=== PATIENT | female | born 1965 | race Caucasian/White ===

== ENCOUNTER → 2017-08-06 | Outpatient (CLI) | payer BC ==
[~2017-08-06] MED LIST: BCP
[2017-08-06 13:53] LABS: ALT/SGPT 22 U/L (12-78); BLOOD UREA NITROGEN 15 mg/dl (7-18); BUN/CREATININE RATIO 20.3 (10-20); CALCIUM 8.7 mg/dl (8.5-10.1); CARBON DIOXIDE 29 mmol/L (21-32); CHLORIDE 106 mmol/L (98-107); CHOLESTEROL 242 mg/dl (0-200); CREATININE 0.72 mg/dl (0.60-1.20); GLUCOSE 93 mg/dl (70-99); POTASSIUM 3.6 mmol/L (3.5-5.1); SODIUM 140 mmol/L (136-145)
[2017-08-06 13:56] LABS: CHOLESTEROL/HDL RATIO 3.4; HDL CHOLESTEROL 72 mg/dl; TRIGLYCERIDES 83 mg/dl (0-150); VERY LOW DENSITY LIPOPROT CALC 17 mg/dl
== END | disposition home or self-care (01) ==
LOC: C.LABMFLN 08:01
PROVIDERS: ATTEND Family Medicine
DX: Z13.220 Encounter for screening for lipoid disorders (principal)

== ENCOUNTER 2020-07-25 11:13 | Inpatient (IN) ==
[2020-07-25] MEDS ORDERED: MAGNESIUM HYDROXIDE SUSP 30 ML UDC PO PRN (11:52)
[2020-07-25] MEDS ORDERED: ONDANSETRON INJ 2 MG/ML 2 ML VIAL IV PRN (11:52)
[2020-07-25] MEDS ORDERED: METOCLOPRAMIDE HCL INJ 5 MG/ML 2 ML VIAL IV PRN (11:52)
[2020-07-25] MEDS ORDERED: CEFAZOLIN 2000MG 2,000 MG/15 ML SYR IV SCH (12:30)
--- OUTSIDE RECORDS SUMMARY | 2020-07-25 12:30 | External Medical Summary | Continuity of Care Document ---
:1965 Author Name Russ Dumont Address Unavailable Unavailable , Care Team Providers Name Role Phone Unavailable Unavailable Unavailable Anand AHUJA M.D. Unavailable Unavailable Unavailable Unavailable Unavailable Problems Breast pain (611.71) (N64.4) Counseling for initiation of control method (V25.02) ( Z30.09) Mass of pelvis (789.30) (R19.00) Encounter for routine gynecological examination (V72.31) (Z0 1.419) Viral labyrinthitis (386.35) (H83.09) Encounter for screening for lipoid disorders (V77.91) (Z13.2 20) Allergies and Adverse Reactions No Known Drug Allergies (Allergy) Medications Medications not documented Procedures History of Dilation And Curettage Status : Completed History of Abdominoplasty Status: Comple dirk Counseling for initiation of control method History of BCP ( control pills) initiation Status: Completed Immunizations Tubersol 5 UNIT/0.1ML Intradermal Solution On: 06-Aug-2017 8: 40 Lot #: [id number], [employer] Family History Mother Family history of Non-Hodgkin's Lymphoma Status: Active Family history of Breast Cancer (V16.3) Status: Active Family history of Malignant Neoplasm Of The Anus Status: Act yo natural son Family history of Non-Hodgkin's Lymphoma Status: Active Grandmother Family history of Ovarian Cancer (V16.41) Status: Active aunt Family history of Ovarian Cancer (V16.41) Status: Active Father Family history of Diabetes Mellitus (V18.0) Status: Active Family history of Hypertension (V17.49) Status: Active Family history of Pure Hypercholesterolemia Status: Active Social History - Smoking Status Tobacco smoking consumption unknown Never smoked tobacco Plan of Treatment Planned Observations Planned Goals not documented Results No Known Results Results not documented
--- NOTE | 2020-07-25 12:51 | Hospitalist Consultation ---
Date of Consultation July 25, 2020 Assessment & Plan (1) Closed right hip fracture: - Ortho on board- Dr. Ibarra - plan for surgical fixation tomorrow for subcapital R hip fracture fixation - NPO after midnight - EKG and CXR clear - CBC and BMP WNL - Pain control with tylenol 100 mg PO Q8H prn, oxycodone IR 5-10 mg Q6H prn - Bowel regimen ordered - Protonix 40 mg QAM - PT/OT consults after surgery - Preop abx with ancef - Melatonin provided for sleep tonight (2) Hypokalemia: - K 3.3 on admission, will replace with PO 30 meq (3) DVT prophylaxis: - teds, scds CODE: FULL code Dispo: From home, likely to remain in the hospital x 2 days, plan for surgery tomorrow Supervising Physician Co-Signing Physician Notes Patient was seen and examined independently I discussed the case with Gloria Pierre PAC I reviewed pertinent past medical social family history and also the plan of care and agree with the plan of care. Patient is in very good health prescribe no issues hopefully upcoming surgery Vitals are reviewed Heart exam is regular lungs are clear she has good neurovascular objective evaluation of her distal right leg Any exceptions will be noted below History of Present Illness Reason for Consultation: Pre-op, medical management Requesting Physician: Dr. Ibarra Attending Physician: Cecilio Ibarra, DO History of Present Illness This is a 54 yo F with PMHx of gestational DM as a mother of five children (ages ranging from 15-25 with a set of twins), hx hernia repair and tummy tuck in 2004 and C3 spinal leak in 2011 resolved after undergoing blood patch by [facility] neurology, who presents for hip surgery scheduled for tomorrow with Dr. Ibarra after a fall she sustained on Saturday. Pt was with her , ready to go for a bike ride on rails to trails while holding onto her dog with a leash in the R hand, the dog lunged forward and pulled her over and fell onto the R hip. She didn't go on the bike ride, instead read a book while the rest of them rode bikes. She was unable to bear weight on it and had to crawl into her house after the trip. She spent most of the day laying in bed yesterday, using naproxen routinely q12hr.. She was using crutches to help get around the house. She had an appointment with [facility] to have hip evaluated; once there it was determined that she would need surgical fixation and was sent to the hospital as a direct admission under ortho service. She feels well currently, and pain is minimal in the R hip but feels swollen in her R lower back. Mobility of the R hip has improved where she can perform hip flexion slightly and more easily than she has been able to in last 2 days. Pt denies numbness, tingling, diminished sensation in the RLE. She denies bowel or bladder incontinence. Pt has been eating and drinking without difficulty. Pt is very active person, walking 45 min twice daily, going on hikes, bike riding, etc, and wants to be able to maintain this lifestyle after surgery. She is nervous about this surgery, specifically about sedation and pain management afterwards. Encouragement was provided at bedside for discussing this openly with the team, and for taking medications like tylenol around the clock after surgery which she was receptive to. Allergies Allergy/AdvReac Type Severity Reaction Status Date / Time No Known Allergies Allergy Unknown Verified 05/23/04 14:49 Home Medications Home Medications Medication Instructions Recorded Confirmed Type BCP #0 08/22/06 History Review of Systems Review of Systems: Constitutional: No fever, sweats or chills Eyes: No diplopia, no worsening or blurred vision ENT: normal hearing, no trouble swallowing Respiratory: No cough, sputum, dyspnea at rest or on exertion Cardiovascular: No chest pain, tightness or palpitations Abdomen: No pain, nausea, vomiting, diarrhea or constipation Musculoskeletal: + Mild R hip pain and lower R back pain, no knee or ankle pain, no calf pain, no swelling Neurologic: As per HPI, otherwise No weakness, numbness/tingling, or balance problems Psychiatric: No anxiety or depression Skin: No rash or itch Physical Exam Physical Exam: General: awake, alert, no apparent distress Head: Normocephalic, atraumatic ENT: PERRL, EOMI, no pharyngeal exudate, mucous membranes moist Chest: Clear to auscultation, on room air, no adventitious breath sounds Cardiac: Regular rate and rhythm, no murmur, no JVD, normal peripheral pulses, good capillary refill Abdominal: NABS x 4 quadrants, soft, nondistended, nontender to palpation, no rebound, guarding or tenderness Extremities: R hip with small abrasion (2cm long) over the R hip area, no surrounding ecchymosis or edema. Otherwise Normal inspection, no peripheral edema or erythema, calfs nontender to palpation Psych: Normal mood and affect Neuro: AAO x 3, strength intact bilaterally and related 5/5 in upper extremities, can perform ~ 30-40 degrees hip flexion with the R hip, gait not assessed, otherwise no motor deficits, speech is clear, no peripheral sensory deficits Results & Data Results & Data ([facility]) Diagnostic Findings CT SCAN OF THE RIGHT HIP WITHOUT IV CONTRAST CLINICAL HISTORY: Fall. Right hip pain. COMPARISON STUDY: No priors. TECHNIQUE: CT scan of the right hip is performed from the bony pelvis to the femoral shaft. Images are reviewed in the axial, sagittal, and coronal planes. IV contrast was not administered for this examination. 3-D reformats are created and assessed. A dose lowering technique was utilized adhering to the principles of ALARA. Note that interpretation is suboptimal without plain film correlate. CT DOSE: 383.83 mGy.cm FINDINGS: The skeletal structures are osteopenic. There is an impacted subcapital fracture of the right femur with mild surrounding hemorrhage. No additional fracture is seen. The visualized right hemipelvis appears intact. There is mild degenerative joint space narrowing noted in the right hip. No lytic or blastic lesion is identified. There is no evidence of osteonecrosis of the femoral head. The overlying musculature is normal in appearance. There is no right pelvic sidewall or right inguinal adenopathy. The bladder and uterus are normal as imaged. IMPRESSION: There is an impacted subcapital fracture of the right femur as above. XR femur RT 2V routine CLINICAL HISTORY: right hip fracture COMPARISON: None. DISCUSSION: There is an acute subcapital right hip fracture. There is no dislocation. IMPRESSION: Acute subcapital right hip fracture. ECG Additional Comments: 25-JUL-2020 13:45:28 [facility]-2 [place] ROUTINE RETRIEVAL Normal sinus rhythm Possible Left atrial enlargement Nonspecific ST abnormality Abnormal ECG No previous ECGs available 25mm/s 10mm/mV 150Hz 9.0.9 12SL 241 HD DANNI: 14 Referred by: Cecilio Ibarra Unconfirmed Vent. rate 97 BPM MA interval 142 ms QRS duration 70 ms QT/QTc 352/447 ms P-R-T axes 84 24 51 PG Care Time/CCT Total # of Minutes Spent Total Time Spent with Patient: Total time spent is greater than 50% in coordination of care (as documented) at patient's floor/unit and/or counseling patient: Coding Level of Care Code 47677 Inpt Consult Level 3 Diagnoses Closed right hip fracture S72.001A Hypokalemia E87.6 DVT prophylaxis Z29.9
--- NOTE | 2020-07-25 12:59 | CT Scan Report ---
CT SCAN OF THE RIGHT HIP WITHOUT IV CONTRAST CLINICAL HISTORY: Fall. Right hip pain. COMPARISON STUDY: No priors. TECHNIQUE: CT scan of the right hip is performed from the bony pelvis to the femoral shaft. Images ar e reviewed in the axial, sagittal, and coronal planes. IV contrast was not administered for this exam ination. 3-D reformats are created and assessed. A dose lowering technique was utilized adhering to t he principles of ALARA. Note that interpretation is suboptimal without plain film correlate. CT DOSE: 383.83 mGy.cm FINDINGS: The skeletal structures are osteopenic. There is an impacted subcapital fracture of the rig ht femur with mild surrounding hemorrhage. No additional fracture is seen. The visualized right hemip meli appears intact. There is mild degenerative joint space narrowing noted in the right hip. No lyt ic or blastic lesion is identified. There is no evidence of osteonecrosis of the femoral head. The ov erlying musculature is normal in appearance. There is no right pelvic sidewall or right inguinal shawnee opathy. The bladder and uterus are normal as imaged. IMPRESSION: There is an impacted subcapital fracture of the right femur as above. ACT 112: Negative or not required by law. Electronically signed by: Sergei Rey M.D. 07/25/2020 12:58 PM
--- NOTE | 2020-07-25 13:28 | XRay Report ---
XR femur RT 2V routine CLINICAL HISTORY: right hip fracture COMPARISON: None. DISCUSSION: There is an acute subcapital right hip fracture. There is no dislocation. IMPRESSION: Acute subcapital right hip fracture. ACT 112: Negative or not required by law. Electronically signed by: Davy Nelson M.D. 07/25/2020 1:27 PM
--- NOTE | 2020-07-25 13:29 | XRay Report ---
XR chest 2V PA/lateral CLINICAL HISTORY: pre-op COMPARISON STUDY: No previous studies for comparison. FINDINGS: Lung volumes are normal. Lungs are clear. There is no pneumothorax or pleural effusion. Car diac size is normal. Mediastinal contours are normal. There is no evidence for pulmonary edema. IMPRESSION: No acute cardiopulmonary findings. ACT 112: Negative or not required by law. Electronically signed by: Ac Barrera M.D. 07/25/2020 1:27 PM
[2020-07-25 14:26] LABS: Basophils # (auto) 0.06 K/uL (0-0.2); Eosinophils # (auto) 0.09 K/uL (0-0.5); Eosinophils % (auto) 1.4 %; Hematocrit (blood only) 42.6 % (37-47); Hemoglobin 14.4 g/dL (12.0-16.0); Immature Granulocytes # (auto) 0.01 K/uL (0.00-0.02); Immature Granulocytes % (auto) 0.2 %; Lymphocytes % (auto) 17.5 %; Mean Corpuscular Hemoglobin 30.8 pg (25-34); Mean Corpuscular Hgb Conc 33.8 g/dL (32-36); Mean Corpuscular Volume 91.2 fL (80-100); Monocytes % (auto) 4.8 %; Neutrophils # (auto) 4.74 K/uL (1.4-6.5); Neutrophils % (auto) 75.1 %; Platelet Count 247 K/uL (130-400); RDW Coefficient of Variation 12.5 % (11.5-14.5); RDW Standard Deviation 41.8 fL (36.4-46.3); Red Blood Count 4.67 M/uL (4.2-5.4)
--- NOTE | 2020-07-25 14:53 | History and Physical Report ---
DATE OF ADMISSION: 07/25/2020 CHIEF COMPLAINT: Right hip pain. HISTORY OF PRESENT ILLNESS: The patient is a 54-year-old female who presented to my office this morning for evaluation of her right hip pain. The patient states she was riding her bike and also holding on to her dog's leash at the same time. The dog took off pulling her over, landing directly on her right hip. She had immediate pain and disability. She has been hobbling around over the weekend using crutches. X-rays in our office today demonstrate a right hip femoral neck fracture. After discussion with Dr. Ibarra, the decision was made to directly admit the patient for likely surgical fixation tomorrow. PAST MEDICAL HISTORY: Denies. PAST SURGICAL HISTORY: Abdominal surgery following childbirth. MEDICATIONS: None. ALLERGIES: No known drug allergies. SOCIAL HISTORY: She lives at home with her , active lady. REVIEW OF SYSTEMS: Noncontributory. PHYSICAL EXAMINATION: GENERAL: Well-nourished, well-developed female in some distress due to her right hip pain. HEENT: Normocephalic, atraumatic. Extraocular movements intact. Oropharynx pink and moist. NECK: Supple without adenopathy. LUNGS: Clear to auscultation bilaterally. HEART: Regular rate and rhythm. ABDOMEN: Soft, nontender, nondistended. EXTREMITIES: The upper extremities are within normal limits. The right hip has a small abrasion on the lateral hip from the trauma. Her right hip is minimally irritable to passive internal/external rotation. She is able to straight leg raise without significant discomfort. X-RAYS: Reviewed and show a mildly displaced, valgus angulated femoral neck fracture. ASSESSMENT: Mildly displaced, valgus aligned right hip femoral neck fracture. PLAN: The above was discussed with the patient. Again, the decision was made to directly admit her to the hospital. We are going to order a CT scan and full length femur x-rays. We will get medical clearance. She will continue to be nonweightbearing and Dr. Ibarra will discuss with her and the family of surgical options.
[2020-07-25 14:58] LABS: BUN Creatinine Ratio 19.9 (10-20); Blood Urea Nitrogen 14 mg/dl (7-18); Calcium 9.7 mg/dl (8.5-10.1); Carbon Dioxide 25 mmol/L (21-32); Chloride 107 mmol/L (98-107); Est GFR (African American) 114.9; Est GFR (Non-African American) 99.2; Glucose 94 mg/dl (70-99); Potassium 3.3 mmol/L (3.5-5.1); Sodium 140 mmol/L (136-145)
[2020-07-25] MEDS ORDERED: POTASSIUM CHLORIDE 10 MEQ TABCR PO STA (15:02)
[2020-07-25] MEDS ORDERED: MELATONIN 3 MG TAB PO PRN (15:02)
[2020-07-25] MEDS: SODIUM CHLORIDE 0.9% 1000ML 1,000 ML IV SCH (15:04)
--- NOTE | 2020-07-25 15:34 | Electrocardiogram Report ---
Test Reason : Blood Pressure : / mmHG Vent. Rate : 097 BPM Atrial Rate : 097 BPM P-R Int : 142 ms QRS Dur : 070 ms QT Int : 352 ms P-R-T Axes : 084 024 051 degrees QTc Int : 447 ms Normal sinus rhythm Left atrial enlargement Diffuse Minor Nonspecific ST abnormality Abnormal ECG No previous ECGs available Confirmed by Lit Sands ([id number]) on 07/25/2020 3:34:14 PM Referred By: Cecilio Ibarra Confirmed By:Lit Sands
[2020-07-25 16:13] LABS: Appearance Urine Clear (Clear); Bacteria Urine Automated Negative (Negative); Bilirubin Urine Negative (Negative); Blood Urine 2+ (Negative); Color Urine Yellow; Glucose Urine UA Negative (Negative); Ketones Urine 1+ (Negative); Leukocyte Esterase Urine Trace (Negative); Nitrite Urine Negative (Negative); Protein Urine Negative (Negative); Specific Gravity Urine 1.006 (1.000-1.030); Urobilinogen Urine Negative (Negative); pH Urine 6.5 (4.5-7.5)
[2020-07-25] MEDS: ACETAMINOPHEN 500 MG TAB PO PRN (20:14)
[2020-07-25] MEDS: DOCUSATE SODIUM 100 MG CAP PO SCH (20:16)
[2020-07-26] MEDS: SODIUM CHLORIDE 0.9% 1000ML 1,000 ML IV SCH ×2 (05:38→21:37)
[2020-07-26] MEDS: ACETAMINOPHEN 500 MG TAB PO PRN ×2 (05:47→22:06)
[2020-07-26] MEDS ORDERED: CEFAZOLIN 2000MG 2,000 MG/15 ML SYR IV SCH (06:00)
[2020-07-26 06:38] LABS: INR 1.1 (0.9-1.1); Prothrombin Time 11.4 Seconds (9.0-12.0)
[2020-07-26 08:38] LABS: Hematocrit (blood only) 38.6 % (37-47); Hemoglobin 12.9 g/dL (12.0-16.0); Mean Corpuscular Hemoglobin 30.4 pg (25-34); Mean Corpuscular Hgb Conc 33.4 g/dL (32-36); Mean Platelet Volume 9.3 fL (7.4-10.4); Platelet Count 227 K/uL (130-400); RDW Coefficient of Variation 12.6 % (11.5-14.5); RDW Standard Deviation 42.1 fL (36.4-46.3); Red Blood Count 4.24 M/uL (4.2-5.4)
[2020-07-26 08:48] LABS: BUN Creatinine Ratio 20.7 (10-20); Calcium 9.1 mg/dl (8.5-10.1); Creatinine Clr Calc Pharmacy 86.4 ml/min; Est GFR (African American) 115.5; Est GFR (Non-African American) 99.7; Magnesium 2.1 mg/dl (1.8-2.4); Potassium 3.7 mmol/L (3.5-5.1)
[2020-07-26] MEDS: PANTOprazole 40 MG TAB PO SCH (10:11)
[2020-07-26] MEDS: DOCUSATE SODIUM 100 MG CAP PO SCH ×2 (10:11→21:36)
--- NOTE | 2020-07-26 10:41 | Hospitalist Progress Note ---
Date of Service July 26, 2020 Assessment & Plan (1) Closed right hip fracture: * Fall off bike while holding onto her dog and was pulled forward * Xray with acute subcapital RIGHT hip fracture * CXR without acute process. EKG wnl. * h/h 14.4/42.6 on admission --> 12.9/38.6 with hydration for procedure this afternoon * NPO for OR this afternoon * Pain contol with tylenol, oxycodone prn * Bowel regimen * Protonix 40mg daily * PT/OT to be ordered after surgery * Pre-op abx with ancef * CBC in AM (2) Hypokalemia: * K 3.3 on admission -- replaced * K 3.7 on AM labs * Continue to monitor (3) DVT prophylaxis: * teds, scds * chemoprophylaxis not ordered as patient for OR this afternoon Thank your for allowing hospitalist service to participate in the care of Ms. Kapoor. Hospitalist service will follow along. Admission and Anticipated Discharge Date Admission Date: July 25, 2020 Supervising Physician Co-Signing Physician Notes Pt d/w Ms. Murphy, PAC Agree with plan as outlined above Awaiting OR for R hip fracture after being pulled off her her bicycle while walking her dog Subjective Patient evaluated this morning. Some anxiety regarding which procedure she will actually have done, as she was told if hip nailing she would be non-weight bearing for an extended period of time. Comparatively, she has been told that if she has a replacement then she can be up walking in a couple of days. Pain controlled with ordered medications. She states some abrasions to elbow and right palm. She does not endorse any history of kidney stones or blood in her urine that she has noted. Denies fever, chills, chest pain, shortness of breath, abdominal pain, n/v/d/c at this time. Review of Systems Review of Systems: All systems reviewed & are unremarkable except as noted in HPI & below Physical Exam Constitutional: WD/WN, vitals as above comfortable; no acute distress Eyes: + anicteric sclerae and PERRL ENMT: Ears: no hearing impairment Neck: normal visual inspection Respiratory: normal respiratory effort, lungs clear to auscultation Cardiovascular: Rate/Rhythm: regular rhythm and + tachycardic Heart Sounds: no murmur Vessels: no JVD Extremities: no edema Gastrointestinal (Abdomen): normal bowel sounds, soft, nontender, no hepatosplenomegaly Musculoskeletal: tender to palpation right trochanter ROM 30 degrees with flexion at the hip Skin: ecchymosis to R knee, abrasions to right palm, abrasion to R hip, approx 2.5cm in length. Neurologic: patellar DTR's 2+ bilat, sensation intact Psychiatric: Orientation: alert and oriented x 3 Affect: + anxious affect Results & Data Results & Data ([facility]) Vital Signs (Past 12 Hours) Vital Signs Temp Pulse Resp BP Pulse Ox 07/26/20 07:35 37.2 C 77 16 123/81 98 07/25/20 23:23 36.7 C 70 16 118/74 97 Laboratory Results 07/26/20 07/26/20 07/26/20 Range/Units 13:52 06:11 06:11 WBC 5.30 (4.8-10.8) K/uL RBC 4.24 (4.2-5.4) M/uL Hgb 12.9 (12.0-16.0) g/dL Hct 38.6 (37-47) % MCV 91.0 (80-100) fL MCH 30.4 (25-34) pg MCHC 33.4 (32-36) g/dL RDW Std Deviation 42.1 (36.4-46.3) fL RDW Coeff of Hui 12.6 (11.5-14.5) % Plt Count 227 (130-400) K/uL MPV 9.3 (7.4-10.4) fL PT (9.0-12.0) Seconds INR (0.9-1.1) Sodium 141 (136-145) mmol/L Potassium 3.7 (3.5-5.1) mmol/L Chloride 111 H (98-107) mmol/L Carbon Dioxide 24 (21-32) mmol/L Anion Gap 6.0 (3-11) BUN 14 (7-18) mg/dl Creatinine 0.67 (0.6-1.2) mg/dl Est Cr Clr Drug Dosing 86.4 Est GFR ( Amer) 115.5 Est GFR (Non-Af Amer) 99.7 BUN/Creatinine Ratio 20.7 H (10-20) Glucose 100 H (70-99) mg/dl Calcium 9.1 (8.5-10.1) mg/dl Magnesium 2.1 (1.8-2.4) mg/dl Urine Color Urine Appearance (Clear) Urine pH (4.5-7.5) Ur Specific Jefferson (1.000-1.030) Urine Protein (Negative) Urine Glucose (UA) (Negative) Urine Ketones (Negative) Urine Blood (Negative) Urine Nitrite (Negative) Urine Bilirubin (Negative) Urine Urobilinogen (Negative) Ur Leukocyte Esterase (Negative) Urine WBC (Auto) (0-5) /hpf Urine RBC (Auto) (0-4) /hpf U Hyaline Cast (Auto) (0-5) /lpf U Epithel Cells (Auto) (0-5) /lpf Urine Bacteria (Auto) (Negative) POC Ur Test NEG (NEG) COVID-19 Eval Order SARS-CoV-2, RNA, NAAT (NEGATIVE) 07/26/20 07/25/20 07/25/20 Range/Units 06:11 Unknown Unknown WBC (4.8-10.8) K/uL RBC (4.2-5.4) M/uL Hgb (12.0-16.0) g/dL Hct (37-47) % MCV (80-100) fL MCH (25-34) pg MCHC (32-36) g/dL RDW Std Deviation (36.4-46.3) fL RDW Coeff of Hui (11.5-14.5) % Plt Count (130-400) K/uL MPV (7.4-10.4) fL PT 11.4 (9.0-12.0) Seconds INR 1.1 (0.9-1.1) Sodium (136-145) mmol/L Potassium (3.5-5.1) mmol/L Chloride (98-107) mmol/L Carbon Dioxide (21-32) mmol/L Anion Gap (3-11) BUN (7-18) mg/dl Creatinine (0.6-1.2) mg/dl Est Cr Clr Drug Dosing Est GFR ( Amer) Est GFR (Non-Af Amer) BUN/Creatinine Ratio (10-20) Glucose (70-99) mg/dl Calcium (8.5-10.1) mg/dl Magnesium (1.8-2.4) mg/dl Urine Color Yellow Urine Appearance Clear (Clear) Urine pH 6.5 (4.5-7.5) Ur Specific Jefferson 1.006 (1.000-1.030) Urine Protein Negative (Negative) Urine Glucose (UA) Negative (Negative) Urine Ketones 1+ H (Negative) Urine Blood 2+ H (Negative) Urine Nitrite Negative (Negative) Urine Bilirubin Negative (Negative) Urine Urobilinogen Negative (Negative) Ur Leukocyte Esterase Trace H (Negative) Urine WBC (Auto) 1-5 (0-5) /hpf Urine RBC (Auto) 5-10 H (0-4) /hpf U Hyaline Cast (Auto) 1-5 (0-5) /lpf U Epithel Cells (Auto) 10-20 H (0-5) /lpf Urine Bacteria (Auto) Negative (Negative) POC Ur Test (NEG) COVID-19 Eval Order SARS-CoV-2, RNA, NAAT NEGATIVE (NEGATIVE) 07/25/20 07/25/20 Range/Units Unknown 14:13 WBC (4.8-10.8) K/uL RBC (4.2-5.4) M/uL Hgb (12.0-16.0) g/dL Hct (37-47) % MCV (80-100) fL MCH (25-34) pg MCHC (32-36) g/dL RDW Std Deviation (36.4-46.3) fL RDW Coeff of Hui (11.5-14.5) % Plt Count (130-400) K/uL MPV (7.4-10.4) fL PT (9.0-12.0) Seconds INR (0.9-1.1) Sodium 140 (136-145) mmol/L Potassium 3.3 L (3.5-5.1) mmol/L Chloride 107 (98-107) mmol/L Carbon Dioxide 25 (21-32) mmol/L Anion Gap 8.0 (3-11) BUN 14 (7-18) mg/dl Creatinine 0.68 (0.6-1.2) mg/dl Est Cr Clr Drug Dosing Not Reportable Est GFR ( Amer) 114.9 Est GFR (Non-Af Amer) 99.2 BUN/Creatinine Ratio 19.9 (10-20) Glucose 94 (70-99) mg/dl Calcium 9.7 (8.5-10.1) mg/dl Magnesium (1.8-2.4) mg/dl Urine Color Urine Appearance (Clear) Urine pH (4.5-7.5) Ur Specific Jefferson (1.000-1.030) Urine Protein (Negative) Urine Glucose (UA) (Negative) Urine Ketones (Negative) Urine Blood (Negative) Urine Nitrite (Negative) Urine Bilirubin (Negative) Urine Urobilinogen (Negative) Ur Leukocyte Esterase (Negative) Urine WBC (Auto) (0-5) /hpf Urine RBC (Auto) (0-4) /hpf U Hyaline Cast (Auto) (0-5) /lpf U Epithel Cells (Auto) (0-5) /lpf Urine Bacteria (Auto) (Negative) POC Ur Test (NEG) COVID-19 Eval Order Covid19 [facility] SARS-CoV-2, RNA, NAAT (NEGATIVE) PG Care Time/CCT Total # of Minutes Spent Total Time Spent with Patient: Total time spent is greater than 50% in coordination of care (as documented) at patient's floor/unit and/or counseling patient: Coding Level of Care Code 98363 Subseq Hosp Care Lvl 2 Diagnoses Closed right hip fracture S72.001A Hypokalemia E87.6 DVT prophylaxis Z29.9
--- NOTE | 2020-07-26 14:21 | Anesthesiology Consultation ---
Date of Service July 26, 2020 Assessment & Plan Chart Review Chart Review: Acceptable Risk for Surgery and Patient NOT seen in Pre Admission Testing Consults Requested none ASA ASA2 Proposed Anesthesia Anesthesia Type: General History Surgery Operation Date: 07/26/20 09:30 Proposed Procedures p Right Hip Open Reduction Internal Fixation Percutaneous Pinning - Cecilio Ibarra DO Height/Weight Height: 5 ft 5 in Weight: 59.8 kg Allergies Allergy/AdvReac Type Severity Reaction Status Date / Time No Known Allergies Allergy Unknown Verified 05/23/04 14:49 Medications Home Medications Medication Instructions Recorded Confirmed Last Taken BCP #0 08/22/06 Unknown Active Medications Generic Name Dose Route Start Last Admin Trade Name Freq PRN Reason Stop Dose Admin Acetaminophen 1,000 mg 07/25/20 11:57 07/26/20 05:47 Acetaminophen 500 Mg Tab PO 08/24/20 11:56 1,000 mg Q8 PRN Administration Mild Pain Docusate Sodium 100 mg 07/25/20 21:00 07/26/20 10:11 Docusate Sodium 100 Mg Cap PO 08/24/20 20:59 100 mg BID ROCHELLE Administration Sodium Chloride 1,000 mls @ 60 mls/hr 07/25/20 12:00 07/26/20 05:38 Nss 1000ml IV 08/24/20 11:59 60 mls/hr .[id number] ROCHELLE Administration Pantoprazole Sodium 40 mg 07/26/20 09:00 07/26/20 10:11 Pantoprazole 40 Mg Tab PO 07/30/20 08:59 40 mg QAM ROCHELLE Administration NPO Date Last Intake of Fluids: 07/26/20 Time Last Intake of Fluids: 05:00 Last Intake of Fluids Comment: sip with meds this am Date Last Intake of Solids: 07/25/20 Time Last Intake of Solids: 22:00 Exercise / Class Metabolic Activity II 4-5 Yardwork/Stairs/Walk up hill Past Anesthesia History No Hx of Anesthesia Complications and No Family Hx of Anesthesia Complications History of PONV History of PONV (suffers from severe post op N/V) and Hx of Motion Sickness Social History Smoking Status: Never smoker Hx Alcohol Use: Yes alcohol intake frequency: a few times a week Hx Substance Use: No Physical Exam Vital Signs Last Vital Signs Temp 36.8 C 07/26/20 13:52 Pulse 95 H 07/26/20 13:52 Resp 20 08/25/20 13:52 BP 144/81 H 07/26/20 13:52 Pulse Ox 96 07/26/20 13:52 Constitutional not obese ENMT Mouth: no dentition abnormality Thyromental Distance: < 3.5 Finger Breadths Mallampati Class: II Neck normal visual inspection and trachea midline; neck extension not limited Respiratory normal respiratory effort Auscultation: lungs clear to auscultation bilaterally Cardiovascular Rate/Rhythm: regular rate and regular rhythm Heart Sounds: no murmur Vessels: no carotid bruit Musculoskeletal Spine: normal cervical ROM Extremities: extremities normal to inspection Neurologic moves all extremities Motor/Sensory: no sensory deficit Psychiatric Orientation: alert and oriented x 3 Testing Laboratory Results 07/26/20 06:11 07/26/20 06:11 PT 11.4 Seconds (9.0-12.0) 07/26/20 06:11 INR 1.1 (0.9-1.1) 07/26/20 06:11 Urine Color Yellow 07/25/20 Unknown Urine Appearance Clear (Clear) 07/25/20 Unknown Urine pH 6.5 (4.5-7.5) 07/25/20 Unknown Ur Specific [place] 1.006 (1.000-1.030) 07/25/20 Unknown Urine Protein Negative (Negative) 07/25/20 Unknown Urine Glucose (UA) Negative (Negative) 07/25/20 Unknown Urine Ketones 1+ (Negative) H 07/25/20 Unknown Urine Nitrite Negative (Negative) 07/25/20 Unknown Ur Leukocyte Esterase Trace (Negative) H 07/25/20 Unknown Urine WBC (Auto) 1-5 /hpf (0-5) 07/25/20 Unknown Urine RBC (Auto) 5-10 /hpf (0-4) H 07/25/20 Unknown U Hyaline Cast (Auto) 1-5 /lpf (0-5) 07/25/20 Unknown U Epithel Cells (Auto) 10-20 /lpf (0-5) H 07/25/20 Unknown Urine Bacteria (Auto) Negative (Negative) 07/25/20 Unknown 07/26/20 13:52 POC Ur Test NEG
[2020-07-26] MEDS ORDERED: SCOPOLAMINE 1.5 MG TDSY TD ONE ×2 (14:23→14:30)
[2020-07-26] MEDS ORDERED: LIDOCAINE HCL 2% 2 ML VIAL/AMP(20MG/ML) INFIL ONE (15:33)
[2020-07-26] MEDS ORDERED: DEXAMETHASONE SOD INJ 4 MG/ML VIAL ONE (15:33)
[2020-07-26] MEDS ORDERED: ONDANSETRON INJ 2 MG/ML 2 ML VIAL ONE (15:33)
[2020-07-26] MEDS ORDERED: MIDAZOLAM HCL 1 MG/ML 2ML VIAL ONE (15:33)
[2020-07-26] MEDS ORDERED: PROPOFOL IV EMULSION 10 MG/ML 20 ML VIAL IV ONE (15:33)
[2020-07-26] MEDS ORDERED: fentaNYL citrate 100 MCG/2 ML VIAL ONE (15:34)
[2020-07-26] MEDS ORDERED: ATROPINE SULFATE 0.1 MG/ML 10ML SYR IV PRN (15:36)
[2020-07-26] MEDS ORDERED: ePHEDrine sulfate 50 MG/ML AMP IV PRN (15:36)
[2020-07-26] MEDS ORDERED: ONDANSETRON INJ 2 MG/ML 2 ML VIAL IV PRN (15:36)
--- NOTE | 2020-07-26 16:06 | History & Physical Bridge Note ---
Date of Service July 26, 2020 History & Physical Bridge Note I have examined the patient, reviewed the History & Physical and in the interval since the performance of the History & Physical I have noted the following changes of clinical significance: no changes noted
--- NOTE | 2020-07-26 16:08 | Orthopedic Progress Note ---
Date of Service July 26, 2020 Assessment & Plan (1) Closed right hip fracture: The patient is a 54-year-old female with valgus impacted femoral neck fracture sustained after a fall from standing height. The patient was medically stabilized on 07/26/2020. I indicated the patient for open reduction internal fixation of the right hip with percutaneous pinning versus total hip arthroplasty. The patient was informed of the risks and benefits of surgery, which include but not limited to infection, bleeding, blood clots, damage to nerves, vessels, bone and soft tissue, dislocation, leg length discrepancy, need for additional surgery and . The patient collectively chose to move for smith with surgical intervention and informed consent was obtained. Admission and Anticipated Discharge Date Admission Date: July 25, 2020 Subjective Patient seen in preoperative holding, comfortable, pain well controlled, no acute issues, medically stabilized for surgery. Review of Systems Review of Systems: All systems reviewed & are unremarkable except as noted in HPI & below Constitutional: as per Subjective / HPI Physical Exam Physical Exam: Right lower extremity is neurovascular sensory intact, +2 dorsalis pedis pulse, compartment soft nontender, painful limited range of motion, straight leg raise intact Constitutional: WD/WN, vitals as above Results & Data ([facility]) Vital Signs (Past 12 Hours) Vital Signs Temp Pulse Resp BP Pulse Ox 07/26/20 13:52 36.8 C 95 H 20 144/81 H 96 07/26/20 07:35 37.2 C 77 16 123/81 98
[2020-07-26] MEDS ORDERED: EPINEPHrine INJ 1 MG/ML AMP ONE (16:12)
[2020-07-26] MEDS ORDERED: BUPIVACAINE 0.5 % 5 MG/1 ML MPF 30ML VIAL ONE (16:12)
--- NOTE | 2020-07-26 17:29 | Fluoroscopy Report ---
FL hip RT 2-3V CLINICAL HISTORY: RT ORIF CANNULATED SCREWS. Right hip fracture. COMPARISON STUDY: Right femur 07/25/2020. FLUOROSCOPY TIME: 1 minute and 25 seconds. FINDINGS: 2 fluoroscopic spot images of the right hip demonstrate internal fixation of an impacted ri ght femoral neck fracture with 3 cannulated screws. The hardware appears intact. Alignment is near-an atomic. IMPRESSION: Fluoroscopy for internal fixation of a right hip fracture. ACT 112: Negative or not required by law. Electronically signed by: Eric Quiros M.D. 07/26/2020 5:28 PM
--- NOTE | 2020-07-26 17:30 | Post Operative Brief Note ---
Immediate Post Op Note v1 Date of Surgery July 26, 2020 Pre & Post Diagnosis Operation Date: 07/26/20 09:30 Pre-Op Diagnosis: RIGHT HIP FRACTURE Post-Op Diagnosis: RIGHT HIP FRACTURE I identified the patient and participated in the time-out.: Yes Procedure Operation Date: 07/26/20 09:30 Actual Procedures p Right Hip Open Reduction Internal Fixation Percutaneous Pinning(Right) - Cecilio Ibarra DO Surgeon Cecilio Ibarra DO Aviation Survival Technician None Estimated Blood Loss 25 Findings Consistent with Post-Op Diagnosis Fluids 500 cc LR Anesthesia Type General Complications none Disposition Disposition: Recovery Room Overlapping Procedure I was present for: the critical portions of procedure. I was immediately available: during the entire case. Back up surgeon: was not required during procedure.
--- NOTE | 2020-07-26 17:33 | Operative Report ---
Post Operative Report Pre & Post Diagnosis Operation Date: 07/26/20 09:30 Pre-Op Diagnosis: RIGHT HIP FRACTURE Post-Op Diagnosis: RIGHT HIP FRACTURE I identified the patient and participated in the time-out.: Yes Procedure Operation Date: 07/26/20 09:30 Actual Procedures p Right Hip Open Reduction Internal Fixation Percutaneous Pinning(Right) - Cecilio Ibarra DO Surgeon Cecilio Ibarra DO [employer]ising [employer] None Estimated Blood Loss 25 Findings Consistent with Post-Op Diagnosis Fluids 500 cc LR Specimens None Anesthesia Type General Complications none Disposition Disposition: Recovery Room Indications The patient is a 54-year-old female with valgus impacted femoral neck fracture sustained after a fall from standing height. The patient was medically stabilized on 07/26/2020. I indicated the patient for ORIF right hip, percutaneous pinning. The patient was informed of the risks and benefits of surgery, which include but not limited to infection, bleeding, blood clots, dam age to nerves, vessels, bone and soft tissue, dislocation, leg length discrepancy, need for additional surgery and . The patient collectively chose to move forward with surgical intervention and informed consent was obtained. Description of Procedure The patient was identified, brought to the operating room, and placed in supine position on the table. After induction of general anesthesia, the patient was positioned on a fracture table. Imaging was obtained utilizing C-arm fluoroscopy of the right hip to assess hip position and version. No reduction was needed. The right hip was then sterilely prepped and draped in the usual fashion for the surgery. A timeout was performed with site vasiliy confirmation and preoperative antibiotics given. Once again under C-arm fluoroscopy a guide pin was inserted percutaneously and positioned in the inferior neck and femoral head while assessed in both the AP and lateral planes. When satisfactory position was confirmed a small direct lateral incision of the right hip around the guide pin was made. Dissection was carried down to the femur through the IT band and the vastus lateralis was elevated off the bone. Adequate hemostasis was achieved with electrocautery. Next under direct visualization with C-arm fluoroscopy we then used the pin guide to place two additional pins in the anter ior superior and posterior superior positions. Position was confirmed both with C-arm fluoroscopy in the AP and lateral position. Each guide pin was measured for appropriate screw length and overdrilled using the cannulated drill bit while utilizing C-arm fluoroscopy to confirm no pin migration had occurred. Three 7.3 16 thread cannulated screws measure 85, 80 and 80 mm were then placed under C-arm fluoroscopy into the femoral head with excellent fixation. The guide pins were removed at this time and final images were obtained utilizing C- arm fluoroscopy. Once this was done and the fixation was solid, the wound was irrigated with copious amounts of sterile saline solution. We then closed in layers using 1 Vicryl, 2-0 Vicryl, and rodo for the skin. Sterile Xeroform, 4x4, Tegaderm dressing was applied. The patient was extubated in the OR , tolerated the procedure well and was taken to the PACU in stable condition. I attest to the content of the Intraoperative Record and any orders documented therein. Any exceptions are noted below.
[2020-07-26] MEDS: fentaNYL citrate 100 MCG/2 ML VIAL IV PRN ×4 (17:38→18:05)
--- NOTE | 2020-07-26 17:57 | XRay Report ---
XR hip RT min 2V CLINICAL HISTORY: Post-Operative implant position. Right hip fracture. COMPARISON STUDY: Right hip 07/25/2020. FINDINGS: Status post internal fixation of a slightly impacted right femoral neck fracture with 3 can nulated screws. The hardware appears intact. Lateral skin rodo are noted. No dislocation. IMPRESSION: Status post internal fixation of a slightly impacted right femoral neck fracture. The gallagher rdware appears intact. ACT 112: Negative or not required by law. Electronically signed by: Eric Quiros M.D. 07/26/2020 5:56 PM
[2020-07-26] MEDS ORDERED: SODIUM CHLORIDE 0.9% 1000ML 1,000 ML IV SCH (18:49)
[2020-07-26] MEDS ORDERED: NALOXONE HCL 0.4 MG/1 ML VIAL/CARP IV PRN (18:49)
[2020-07-26] MEDS: CHECK SCOPOLAMINE PATCH PLACEMENT SCH (18:50)
--- NOTE | 2020-07-26 18:50 | Anesthesiology Progress Note ---
Date of Service July 26, 2020 Anesthesia Post Procedure Vital Signs Vital Signs: Temp Pulse Pulse Resp BP Pulse Ox 07/26/20 18:30 36.8 C 85 14 129/81 98 07/26/20 18:20 88 14 134/80 96 07/26/20 18:10 85 14 111/62 97 07/26/20 18:00 105 H 16 149/84 H 97 07/26/20 17:50 101 H 14 143/84 H 100 07/26/20 17:40 102 H 18 150/85 H 99 07/26/20 17:32 36.5 C 104 H 18 117/79 98 07/26/20 13:52 36.8 C 95 H 20 144/81 H 96 07/26/20 07:35 37.2 C 77 16 123/81 98 07/25/20 23:23 36.7 C 70 16 118/74 97 Pain Intensity Right Hip: Pain Intensity: 2 Transfer of Care Handoff Completed per policy Notes Mental Status: alert / awake / arousable Patient Amnestic to Procedure: Yes Nausea / Vomiting: adequately controlled Pain: adequately controlled Airway Patency, RR, SpO2: stable & adequate BP & HR: stable & adequate Hydration State: stable & adequate Anesthetic Complications: no major complications apparent
--- NOTE | 2020-07-26 19:55 | Orthopedic Progress Note ---
Date of Service July 26, 2020 Assessment & Plan (1) Closed right hip fracture: s/p R hip perc pinning -ancef x 24 -DVT PPX: SCDs, TEDs, Lovenox daily -PT/OT -TT NWB RLE -PO XR demonstrates well aligned well fixed orthopedic implants, anatomic alignment of fracture -am labs -DC planning Admission and Anticipated Discharge Date Admission Date: July 25, 2020 Subjective Post Operative Progress Note Patient seen in PACU, comfortable, denies complaints, pain well controlled, no acute issues. Review of Systems Review of Systems: All systems reviewed & are unremarkable except as noted in HPI & below Constitutional: as per Subjective / HPI Physical Exam Physical Exam: RLE NVSI +EHL/FHL/TA/GS SILT grossly, +2 DP pulse, compartments soft NT, dressing cdi. Constitutional: WD/WN, vitals as above Results & Data ([facility]) Vital Signs (Past 12 Hours) Vital Signs Temp Pulse Pulse Resp BP Pulse Ox 07/26/20 19:15 36.6 C 94 H 123/83 93 07/26/20 18:30 36.8 C 85 14 129/81 98 07/26/20 18:20 88 14 134/80 96 07/26/20 18:10 85 14 111/62 97 07/26/20 18:00 105 H 16 149/84 H 97 07/26/20 17:50 101 H 14 143/84 H 100 07/26/20 17:40 102 H 18 150/85 H 99 07/26/20 17:32 36.5 C 104 H 18 117/79 98 07/26/20 13:52 36.8 C 95 H 20 144/81 H 96
[2020-07-27] MEDS: CEFAZOLIN 1000MG 1,000 MG/7.5 ML SYR IV SCH ×4 (00:11→23:27)
[2020-07-27] MEDS: CHECK SCOPOLAMINE PATCH PLACEMENT SCH ×4 (00:11→23:27)
[2020-07-27] MEDS: ACETAMINOPHEN 500 MG TAB PO PRN ×2 (07:36→19:17)
--- NOTE | 2020-07-27 07:37 | Orthopedic Progress Note ---
Date of Service July 27, 2020 Assessment & Plan (1) Closed right hip fracture: s/p R hip perc pinning POD#1 -ancef x 24 -DVT PPX: SCDs, TEDs, Lovenox daily -PT/OT -TT NWB RLE -PO XR demonstrates well aligned well fixed orthopedic implants, anatomic alignment of fracture -am labs - pending -DC planning - home with HH Admission and Anticipated Discharge Date Admission Date: July 25, 2020 Subjective Post Operative Progress Note Patient seen sitting up in bed, comfortable, denies complaints, pain well controlled, no acute issues. Denies F/C/N/V/SOB/CP. Review of Systems Review of Systems: All systems reviewed & are unremarkable except as noted in HPI & below Constitutional: as per Subjective / HPI Physical Exam Physical Exam: RLE NVSI +EHL/FHL/TA/GS SILT grossly, +2 DP pulse, compartments soft NT, scant serosanguineous drainage on dressing. Constitutional: WD/WN, vitals as above Results & Data ([facility]) Vital Signs (Past 12 Hours) Vital Signs Temp Pulse Pulse Resp BP Pulse Ox 07/27/20 02:56 36.7 C 97 H 16 103/68 95 07/26/20 23:00 36.6 C 84 16 111/77 94 07/26/20 21:42 36.6 C 93 H 18 110/72 94 07/26/20 20:40 36.6 C 93 H 16 128/80 94 Laboratory Results 07/26/20 07/26/20 07/26/20 Range/Units 13:52 06:11 06:11 WBC (4.8-10.8) K/uL RBC (4.2-5.4) M/uL Hgb (12.0-16.0) g/dL Hct (37-47) % MCV (80-100) fL MCH (25-34) pg MCHC (32-36) g/dL RDW Std Deviation (36.4-46.3) fL RDW Coeff of Hui (11.5-14.5) % Plt Count (130-400) K/uL MPV (7.4-10.4) fL Sodium 141 (136-145) mmol/L Potassium 3.7 (3.5-5.1) mmol/L Chloride 111 H (98-107) mmol/L Carbon Dioxide 24 (21-32) mmol/L Anion Gap 6.0 (3-11) BUN 14 (7-18) mg/dl Creatinine 0.67 (0.6-1.2) mg/dl Est Cr Clr Drug Dosing 86.4 ml/min Est GFR ( Amer) 115.5 Est GFR (Non-Af Amer) 99.7 BUN/Creatinine Ratio 20.7 H (10-20) Glucose 100 H (70-99) mg/dl Calcium 9.1 (8.5-10.1) mg/dl Magnesium 2.1 (1.8-2.4) mg/dl POC Ur Test NEG (NEG) Blood Type Blood Type Recheck O Positive Antibody Screen 07/26/20 07/25/20 Range/Units 06:11 14:13 WBC 5.30 (4.8-10.8) K/uL RBC 4.24 (4.2-5.4) M/uL Hgb 12.9 (12.0-16.0) g/dL Hct 38.6 (37-47) % MCV 91.0 (80-100) fL MCH 30.4 (25-34) pg MCHC 33.4 (32-36) g/dL RDW Std Deviation 42.1 (36.4-46.3) fL RDW Coeff of Hui 12.6 (11.5-14.5) % Plt Count 227 (130-400) K/uL MPV 9.3 (7.4-10.4) fL Sodium (136-145) mmol/L Potassium (3.5-5.1) mmol/L Chloride (98-107) mmol/L Carbon Dioxide (21-32) mmol/L Anion Gap (3-11) BUN (7-18) mg/dl Creatinine (0.6-1.2) mg/dl Est Cr Clr Drug Dosing ml/min Est GFR ( Amer) Est GFR (Non-Af Amer) BUN/Creatinine Ratio (10-20) Glucose (70-99) mg/dl Calcium (8.5-10.1) mg/dl Magnesium (1.8-2.4) mg/dl POC Ur Test (NEG) Blood Type O Positive Blood Type Recheck Antibody Screen NEGATIVE
[2020-07-27 07:40] LABS: Basophils # (auto) 0.02 K/uL (0-0.2); Basophils % (auto) 0.3 %; Eosinophils # (auto) 0.07 K/uL (0-0.5); Eosinophils % (auto) 0.9 %; Hematocrit (blood only) 37.5 % (37-47); Hemoglobin 12.5 g/dL (12.0-16.0); Lymphocytes # (auto) 1.57 K/uL (1.2-3.4); Mean Corpuscular Hemoglobin 29.7 pg (25-34); Mean Corpuscular Hgb Conc 33.3 g/dL (32-36); Mean Corpuscular Volume 89.1 fL (80-100); Mean Platelet Volume 8.9 fL (7.4-10.4); Monocytes % (auto) 9.4 %; Neutrophils % (auto) 68.4 %; Platelet Count 216 K/uL (130-400); RDW Coefficient of Variation 12.2 % (11.5-14.5); RDW Standard Deviation 39.2 fL (36.4-46.3); Red Blood Count 4.21 M/uL (4.2-5.4); White Blood Count 7.46 K/uL (4.8-10.8)
[2020-07-27 08:09] LABS: Calcium 9.2 mg/dl (8.5-10.1); Creatinine Clr Calc Pharmacy 105.2 ml/min; Est GFR (African American) 123.2; Est GFR (Non-African American) 106.3; Potassium 3.7 mmol/L (3.5-5.1)
--- NOTE | 2020-07-27 08:13 | Anesthesiology Progress Note ---
Date of Service July 27, 2020 Anesthesia Post Procedure Vital Signs Vital Signs: Temp Pulse Pulse Resp BP Pulse Ox 07/27/20 02:56 36.7 C 97 H 16 103/68 95 07/26/20 23:00 36.6 C 84 16 111/77 94 07/26/20 21:42 36.6 C 93 H 18 110/72 94 07/26/20 20:40 36.6 C 93 H 16 128/80 94 07/26/20 19:15 36.6 C 94 H 123/83 93 07/26/20 18:30 36.8 C 85 14 129/81 98 07/26/20 18:20 88 14 134/80 96 07/26/20 18:10 85 14 111/62 97 07/26/20 18:00 105 H 16 149/84 H 97 07/26/20 17:50 101 H 14 143/84 H 100 07/26/20 17:40 102 H 18 150/85 H 99 07/26/20 17:32 36.5 C 104 H 18 117/79 98 07/26/20 13:52 36.8 C 95 H 20 144/81 H 96 Pain Intensity Right Hip: Pain Intensity: 2 Notes Mental Status: alert / awake / arousable Patient Amnestic to Procedure: Yes Nausea / Vomiting: adequately controlled Pain: adequately controlled Airway Patency, RR, SpO2: stable & adequate BP & HR: stable & adequate Hydration State: stable & adequate Anesthetic Complications: no major complications apparent and Pt Satisfied with anesthetic care
[2020-07-27] MEDS: PANTOprazole 40 MG TAB PO SCH (09:03)
[2020-07-27] MEDS: ENOXAPARIN INJ 40 MG/0.4 ML SYR SQ SCH (09:04)
[2020-07-27] MEDS: DOCUSATE SODIUM 100 MG CAP PO SCH ×2 (09:07→20:51)
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
[2020-07-27] MEDS: OXYCODONE HCL IR 5 MG TAB (IMMEDIATE RELEASE) PO PRN ×2 (14:22→20:51)
[2020-07-28] MEDS: OXYCODONE HCL IR 5 MG TAB (IMMEDIATE RELEASE) PO PRN ×2 (03:58→10:10)
[2020-07-28 06:38] LABS: Basophils # (auto) 0.04 K/uL (0-0.2); Basophils % (auto) 0.7 %; Eosinophils # (auto) 0.49 K/uL (0-0.5); Eosinophils % (auto) 8.3 %; Hematocrit (blood only) 35.7 % (37-47); Hemoglobin 12.1 g/dL (12.0-16.0); Immature Granulocytes # (auto) 0.01 K/uL (0.00-0.02); Immature Granulocytes % (auto) 0.2 %; Lymphocytes % (auto) 38.8 %; Mean Corpuscular Hemoglobin 30.1 pg (25-34); Mean Corpuscular Hgb Conc 33.9 g/dL (32-36); Mean Corpuscular Volume 88.8 fL (80-100); Mean Platelet Volume 8.4 fL (7.4-10.4); Monocytes # (auto) 0.45 K/uL (0.11-0.59); Monocytes % (auto) 7.6 %; Neutrophils # (auto) 2.64 K/uL (1.4-6.5); Neutrophils % (auto) 44.4 %; Platelet Count 203 K/uL (130-400); RDW Coefficient of Variation 12.2 % (11.5-14.5); RDW Standard Deviation 39.2 fL (36.4-46.3); Red Blood Count 4.02 M/uL (4.2-5.4); White Blood Count 5.93 K/uL (4.8-10.8)
[2020-07-28 07:16] LABS: Chol HDL Ratio 4; Cholesterol 231 mg/dl (0-200); HDL Cholesterol 64 mg/dl; LDL Cholesterol Calculated 148 mg/dl; Triglycerides 97 mg/dl (0-150); VLDL Cholesterol 19 mg/dl
[2020-07-28] MEDS: CHECK SCOPOLAMINE PATCH PLACEMENT SCH (08:27)
--- NOTE | 2020-07-28 08:41 | Orthopedic Progress Note ---
Date of Service July 28, 2020 Assessment & Plan (1) Closed right hip fracture: s/p R hip perc pinning POD#2 -ancef x 24 -DVT PPX: SCDs, TEDs, Lovenox daily -PT/OT -TT NWB RLE -PO XR demonstrates well aligned well fixed orthopedic implants, anatomic alignment of fracture -am labs - as above, hgb 12.1 -DC planning - home with POD#1 -ancef x 24 -DVT PPX: SCDs, TEDs, Lovenox daily -PT/OT -TT NWB RLE -PO XR demonstrates well aligned well fixed orthopedic implants, anatomic alignment of fracture -am labs - pending -DC planning - home with Admission and Anticipated Discharge Date Admission Date: July 25, 2020 Subjective Post Operative Progress Note Patient seen sitting up in bed, comfortable, denies complaints, pain well controlled, no acute issues. Intermittent pain with sitting. Denies F/C/N/V/SOB/CP. Review of Systems Review of Systems: All systems reviewed & are unremarkable except as noted in HPI & below Constitutional: as per Subjective / HPI Physical Exam Physical Exam: RLE NVSI +EHL/FHL/TA/GS SILT grossly, +2 DP pulse, compartments soft NT, dressing cdi. Constitutional: WD/WN, vitals as above Results & Data ([facility]) Vital Signs (Past 12 Hours) Vital Signs Temp Pulse Resp BP Pulse Ox 07/28/20 00:02 36.9 C 71 18 121/73 94 Laboratory Results 07/28/20 07/28/20 07/28/20 Range/Units 06:23 06:23 06:23 WBC 5.93 (4.8-10.8) K/uL RBC 4.02 L (4.2-5.4) M/uL Hgb 12.1 (12.0-16.0) g/dL Hct 35.7 L (37-47) % MCV 88.8 (80-100) fL MCH 30.1 (25-34) pg MCHC 33.9 (32-36) g/dL RDW Std Deviation 39.2 (36.4-46.3) fL RDW Coeff of Hui 12.2 (11.5-14.5) % Plt Count 203 (130-400) K/uL MPV 8.4 (7.4-10.4) fL Immature Gran % (Auto) 0.2 % Neut % (Auto) 44.4 % Lymph % (Auto) 38.8 % [place] % (Auto) 7.6 % Eos % (Auto) 8.3 % Baso % (Auto) 0.7 % Neut # (Auto) 2.64 (1.4-6.5) K/uL Lymph # (Auto) 2.30 (1.2-3.4) K/uL [place] # (Auto) 0.45 (0.11-0.59) K/uL Eos # (Auto) 0.49 (0-0.5) K/uL Baso # (Auto) 0.04 (0-0.2) K/uL Immature Gran # (Auto) 0.01 (0.00-0.02) K/uL Triglycerides 97 (0-150) mg/dl Cholesterol 231 H (0-200) mg/dl LDL Cholesterol, Calc 148 mg/dl VLDL Cholesterol, Calc 19 mg/dl HDL Cholesterol 64 mg/dl Cholesterol/HDL Ratio 4 25-OH Vitamin D Total Pending
[2020-07-28] MEDS: DOCUSATE SODIUM 100 MG CAP PO SCH (09:10)
[2020-07-28] MEDS: PANTOprazole 40 MG TAB PO SCH (09:10)
[2020-07-28] MEDS: ENOXAPARIN INJ 40 MG/0.4 ML SYR SQ SCH (09:10)
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
[2020-07-28] MEDS ORDERED: CHOLECALCIFEROL 1,000 UNITS 25 MCG TAB PO SCH (10:00)
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
== END 2020-07-28 15:36 | disposition home health service (06) | DRG 482 ==
LOC: 3N 12:27